=== PATIENT | male | born 1995 | race African-American/Black ===

== ENCOUNTER 2022-03-23 23:23 | Inpatient (IN) | payer BC ==
[~2022-03-23] VITALS: Ht 170.2 cm; Wt 69.4 kg
[2022-03-24] MEDS ORDERED: HALOPERIDOL LACTATE 5 MG/1 ML VIAL IV ONE (00:45)
[2022-03-24] MEDS ORDERED: diphenhydrAMINE 50 MG/1 ML VIAL IV ONE (00:45)
[2022-03-24] MEDS ORDERED: LORAZEPAM 2 MG/1 ML VIAL IV ONE (00:45)
[2022-03-24] MEDS ORDERED: HALOPERIDOL LACTATE 5 MG/1 ML VIAL ONE (01:04)
[2022-03-24] MEDS ORDERED: diphenhydrAMINE 50 MG/1 ML VIAL ONE (01:04)
[2022-03-24] MEDS ORDERED: LORAZEPAM 2 MG/1 ML VIAL ONE (01:05)
[2022-03-24 01:14] LABS: HEMATOCRIT 35.6 % (36.7-47.1); MEAN CORPUSCULAR HEMOGLOBIN 33.4 uug (23.8-33.4); MEAN CORPUSCULAR VOLUME 98.5 fL (73.0-96.2); PLATELET COUNT (AUTO) 273 K/uL (152-348)
[2022-03-24 01:19] LABS: ALANINE AMINOTRANSFERASE 31 U/L (16-63); ALKALINE PHOSPHATASE 65 U/L (50-136); ASPARTATE AMINOTRANSFERASE 87 U/L (15-37); BILIRUBIN,DIRECT 0.3 mg/dL (0.0-0.2); BILIRUBIN,TOTAL 1.3 mg/dL (0.2-1.0); CARBON DIOXIDE 21 mmol/L (21-32); CHLORIDE 100 mmol/L (98-107); GLUCOSE 64 mg/dL (74-106); TOTAL PROTEIN, SERUM 9.5 g/dL (6.4-8.2); UREA NITROGEN, BLOOD 33 mg/dL (7-18)
[2022-03-24 01:22] LABS: ETHANOL < 3 MG/DL (0-0)
[2022-03-24 01:31] LABS: ACETAMINOPHEN < 2.0 ug/mL (10-30)
[2022-03-24] MEDS ORDERED: IV NS 1000 ML 1,000 ML IV ONE ×2 (01:45→05:30)
[2022-03-24 05:01] LABS: *BILIRUBIN,URIN NEGATIVE (NEGATIVE); *BLOOD, URINE NEGATIVE (NEGATIVE); *CLARITY,URINE CLEAR (CLEAR); *COLOR,URINE YELLOW (YELLOW); *KETONES,URINE NEGATIVE (NEGATIVE); *UROBILINOGEN,URINE 0.2 E.U./dl (NORMAL); LEUKOCYTE ESTERASE ,URINE NEGATIVE (NEGATIVE); NITRITE, URINE NEGATIVE (NEGATIVE); PH,URINE 6.5 (5.0-8.0); UGLUCOSE NEGATIVE (NEGATIVE)
[2022-03-24 05:14] LABS: *AMPHETAMINE, URINE NEGATIVE (NEGATIVE); *CANNABINOID, URINE POSITIVE (NEGATIVE); *COCCAINE, URINE NEGATIVE (NEGATIVE); *OPIATE, URINE NEGATIVE (NEGATIVE); *PHENCYCLIDINE SCREEN,URINE NEGATIVE (NEGATIVE)
[2022-03-24 06:26] LABS: CREATININE 2.7 mg/dL (0.6-1.3); POTASSIUM 4.2 mmol/L (3.5-5.1)
[2022-03-24] MEDS ORDERED: PANT40TA49 PO (06:33)
[2022-03-24] MEDS ORDERED: BICT1TAB PO (06:33)
[2022-03-24] MEDS ORDERED: ESCI-9 PO (06:33)
[2022-03-24] MEDS ORDERED: DILT30TA2 PO (06:33)
[2022-03-24] MEDS ORDERED: DIAZ2TAB (06:33)
[2022-03-24] MEDS ORDERED: ACETAMINOPHEN 325 MG TABLET PO PRN (11:15)
[2022-03-24] MEDS ORDERED: REMEDY ESSENTIAL ZINC PASTE 113 GM TP PRN (11:15)
[2022-03-24] MEDS ORDERED: ONDANSETRON 4 MG/2 ML VIAL IV PRN (11:15)
[2022-03-24] MEDS ORDERED: MAGNESIUM HYDROXIDE 30 ML LIQUID UDC PO PRN (11:15)
[2022-03-24] MEDS ORDERED: IV 1/2NS 1000 ML 1,000 ML IV PRN (11:15)
[2022-03-24] MEDS ORDERED: ESCITALOPRAM OXALATE 10 MG TABLET PO SCH (12:15)
[2022-03-24] MEDS ORDERED: ESCITALOPRAM OXALATE 10 MG TABLET ONE (12:34)
[2022-03-24] MEDS ORDERED: DILTIAZEM HCL 30 MG TABLET ONE ×2 (12:34→20:25)
[2022-03-24] MEDS: DILTIAZEM HCL 30 MG TABLET PO SCH ×2 (12:43→20:29)
[2022-03-25 01:15] VITALS: BP 104/59
[2022-03-25 04:07] VITALS: BP 97/52
[2022-03-25] MEDS: PANTOPRAZOLE SODIUM 40 MG TABLET.DR PO SCH ×2 (06:17→06:27)
[2022-03-25 06:45] LABS: HEMATOCRIT 35.6 % (36.7-47.1); MEAN CORPUSCULAR HEMOGLOBIN 33.5 uug (23.8-33.4); MEAN CORPUSCULAR VOLUME 98.5 fL (73.0-96.2); PLATELET COUNT (AUTO) 240 K/uL (152-348)
[2022-03-25 07:18] LABS: BILIRUBIN,TOTAL 0.9 mg/dL (0.2-1.0); CREATININE 1.8 mg/dL (0.6-1.3); MAGNESIUM 1.9 mg/dL (1.8-2.4); POTASSIUM 3.7 mmol/L (3.5-5.1); TOTAL PROTEIN, SERUM 8.1 g/dL (6.4-8.2)
[2022-03-25] MEDS ORDERED: Bictegrav/Emtricit/Tenofov Ala (Biktarvy 50-200-25 mg Ta PO SCH (09:00)
== END 2022-03-25 07:45 | disposition left against medical advice (07) | DRG 917 ==
LOC: ER 23:23 → MEDSURG3 03-24 11:59 → OBSER 03-24 15:26 → MEDSURG3 03-24 15:26 → TELE3 03-25 01:27
PROVIDERS: ADMIT Internal Medicine; ATTEND Internal Medicine
DX: T43.621A Poisoning by amphetamines, accidental (unintentional), initial encounter (principal); G92.8 Other toxic encephalopathy; N17.0 Acute kidney failure with tubular necrosis; M62.82 Rhabdomyolysis; Y92.89 Other specified places as the place of occurrence of the external cause; Z20.822 Contact with and (suspected) exposure to COVID-19
CPT/HCPCS: 36415; 70450; 71045; 83605; 83735; 84100; 84484; 85025; 87040; 93005; G0378; G0480; J1200; J1630; J2060; J7040